=== PATIENT | female | born 1950 | race Caucasian/White ===

== ENCOUNTER 2022-01-18 14:01 | Inpatient (IN) ==
[2022-01-18] MEDS ORDERED: Naloxone 0.4 MG/ML INJ IVP PRN (19:31)
[2022-01-18] MEDS: Acetaminophen 325 MG TABLET PO PRN (19:54)
[2022-01-18] MEDS: 0.9 % Sodium Chloride 1,000 ML IVC SCH (19:55)
[2022-01-18] MEDS ORDERED: *HR* Dextrose 50 % in Water (Syg) 50 ML SYRINGE IVP PRN (21:41)
[2022-01-18] MEDS ORDERED: Ipratropium/Albuterol Neb 3 ML IH PRN (21:41)
[2022-01-18] MEDS ORDERED: Pantoprazole 40 MG VIAL IVP ONE (21:41)
[2022-01-18] MEDS ORDERED: Dextrose 4 GM Chewable Tablets PO PRN ×2 (21:41)
[2022-01-18] MEDS ORDERED: D5% in Water 1,000 ML IVC PRN (21:41)
[2022-01-19 00:54] LABS: INR 1.1; Prothrombin Time 12.8 Seconds (9.4-12.1)
[2022-01-19 00:57] LABS: Activated Partial Thrombo Time 33.4 Seconds (26.0-36.0)
[2022-01-19 01:01] LABS: Hematocrit 39.3 % (35.3-44.9); Immature Platelets 7.7 % (1.1-6.1); Mean Corpuscular HGB Conc 33.1 g/dL (31.6-35.5); Mean Corpuscular Hemoglobin 30.7 pg (28.0-33.3); Mean Corpuscular Volume 92.7 fL (83.0-100.0); Mean Platelet Volume 11.4 fL (9.4-12.4); Red Blood Count 4.24 M/mcL (3.82-4.97); Red Cell Distribution Width 12.3 % (11.5-14.5); White Blood Count 7.3 K/mcL (4.3-11.1)
[2022-01-19 01:07] LABS: BUN/Creatinine Ratio 18 (6-26); Blood Urea Nitrogen 10 mg/dL (8-23); Calcium 8.9 mg/dL (8.6-10.3); Carbon Dioxide 23 mEq/L (23-29); Chloride 103 mEq/L (98-107); Glucose 152 mg/dL (70-105); Magnesium 1.7 mg/dL (1.6-2.6); Osmolality,Calculated 284 (280-300); Phosphorous 3.2 mg/dL (2.7-4.5); Potassium 3.4 mEq/L (3.5-5.1); Sodium 136 mEq/L (136-145); eGFR For African Americans > 60 (> 60); eGFR For Non-African Americans > 60 (> 60)
[2022-01-19] MEDS: Acetaminophen 325 MG TABLET PO PRN ×2 (02:08→22:06)
[2022-01-19] MEDS: Melatonin 3 MG TABLET PO PRN (02:08)
[2022-01-19 02:31] LABS: Troponin I < 0.03 ng/mL (< 0.04)
[2022-01-19 02:35] LABS: Estimated Average Glucose 120 mg/dl; Hemoglobin A1C 5.8 %
[2022-01-19] MEDS ORDERED: *HR* LORazepam 0.5 MG TABLET PO ONE (02:46)
[2022-01-19] MEDS ORDERED: Nitroglycerin 0.4 MG TAB.SUBL SL PRN (02:52)
[2022-01-19] MEDS: 0.9 % Sodium Chloride 1,000 ML IVC SCH (06:00)
[2022-01-19] MEDS: Multivit/Ca/Min/Fe/FA 1 TAB TABLET PO SCH (08:38)
[2022-01-19] MEDS: Cholecalciferol (D-3) 1,000 UNIT (25MCG) TABLET PO SCH (08:38)
[2022-01-19] MEDS: Nicotine 7 MG PATCH.TD24 TD SCH (08:38)
[2022-01-19] MEDS ORDERED: *HR* FentaNYL (PF) 100 MCG/2 ML VIAL IVP PRN (09:09)
[2022-01-19] MEDS ORDERED: *HR* HYDROmorphone PF 0.5 MG/0.5 ML SYRINGE IVP PRN (09:09)
[2022-01-19] MEDS ORDERED: Perflutren Lipid Microsphere 1.3 ML in 0.9 % Sodium Chloride 8.7 ML IVP PRN (13:59)
[2022-01-20] MEDS: *HR* Enoxaparin 40 MG/0.4 ML SYRINGE SQ SCH (05:23)
[2022-01-20 06:31] LABS: Hematocrit 39.1 % (35.3-44.9); Hemoglobin 13.2 g/dL (11.5-15.4); Mean Corpuscular HGB Conc 33.8 g/dL (31.6-35.5); Mean Corpuscular Hemoglobin 31.1 pg (28.0-33.3); Mean Corpuscular Volume 92.2 fL (83.0-100.0); Mean Platelet Volume 11.5 fL (9.4-12.4); Platelet Count 127 K/mcL (140-400); Red Blood Count 4.24 M/mcL (3.82-4.97); Red Cell Distribution Width 12.5 % (11.5-14.5); White Blood Count 7.4 K/mcL (4.3-11.1)
[2022-01-20 06:42] LABS: BUN/Creatinine Ratio 13 (6-26); Blood Urea Nitrogen 7 mg/dL (8-23); Calcium 9.1 mg/dL (8.6-10.3); Carbon Dioxide 25 mEq/L (23-29); Chloride 102 mEq/L (98-107); Glucose 144 mg/dL (70-105); Osmolality,Calculated 285 (280-300); Potassium 3.3 mEq/L (3.5-5.1); Sodium 137 mEq/L (136-145); eGFR For African Americans > 60 (> 60); eGFR For Non-African Americans > 60 (> 60)
[2022-01-20] MEDS ORDERED: *HR* Propofol 200 MG/20 ML VIAL IVP ONE ×2 (07:42→09:31)
[2022-01-20] MEDS ORDERED: CeFAZolin Syr 2,000MG/20 ML 2,000 MG/20 ML SYRINGE IVPB ONE (07:47)
[2022-01-20] MEDS: Ringers Solution, Lactated 1,000 ML IVC SCH ×2 (07:49→22:10)
[2022-01-20] MEDS ORDERED: Lidocaine -MPF 2% 2 ML VIAL ONE ×2 (07:49→09:12)
[2022-01-20] MEDS ORDERED: *HR* Rocuronium Bromide 50 MG/5 ML VIAL ONE (07:49)
[2022-01-20] MEDS ORDERED: *HR* FentaNYL (PF) 100 MCG/2 ML VIAL ONE (07:49)
[2022-01-20] MEDS ORDERED: Lidocaine HCL 4 ML Topical Solution (Laryng-O-Jet Kit Sterile Pak) TP ONE (07:49)
[2022-01-20] MEDS ORDERED: Ondansetron 4 MG/2 ML VIAL ONE (07:49)
[2022-01-20] MEDS ORDERED: *HR* Succinylcholine 200 MG/10 ML VIAL IVP ONE (07:49)
[2022-01-20] MEDS ORDERED: Albuterol 2.5 MG/3 ML NEBULIZER IH ONE (07:57)
[2022-01-20] MEDS ORDERED: TOTAL JOINT MIXTURE (100ML) INTRAART ONE (08:00)
[2022-01-20] MEDS ORDERED: Povidone-Iodine 45 ML, Sodium Chloride IRRigation 1,000 ML IR ONE (08:00)
[2022-01-20] MEDS ORDERED: Albuterol 2.5 MG/3 ML NEBULIZER ONE (08:01)
[2022-01-20] MEDS ORDERED: Sugammadex Sodium 200 MG/2 ML VIAL IV ONE (09:07)
[2022-01-20] MEDS ORDERED: Tranexamic Acid 1,000 MG/10 ML VIAL ONE (09:13)
[2022-01-20] MEDS ORDERED: *HR* HYDROMORPHONE 2 MG/ML VIAL ONE (09:19)
[2022-01-20] MEDS: Nicotine 7 MG PATCH.TD24 TD SCH (09:21)
[2022-01-20] MEDS: Cholecalciferol (D-3) 1,000 UNIT (25MCG) TABLET PO SCH (09:22)
[2022-01-20] MEDS: Multivit/Ca/Min/Fe/FA 1 TAB TABLET PO SCH (09:22)
[2022-01-20] MEDS ORDERED: Ropivacaine/PF 0.5% 30 ML VIAL ONE (10:27)
[2022-01-20] MEDS ORDERED: Lidocaine -MPF 1% 5 ML AMPUL ONE (10:27)
[2022-01-20] MEDS ORDERED: Insulin DETEMIR 100 UNIT/ML X5UNITS SUBQ ONE (20:32)
[2022-01-20] MEDS: Melatonin 3 MG TABLET PO PRN (22:14)
[2022-01-20] MEDS: CeFAZolin 2,000 MG/120 ML BAG IVPB SCH (23:47)
[2022-01-21] MEDS: *HR* Enoxaparin 40 MG/0.4 ML SYRINGE SQ SCH (05:48)
[2022-01-21] MEDS: Acetaminophen 325 MG TABLET PO PRN (06:17)
[2022-01-21 06:50] LABS: Hematocrit 30.7 % (35.3-44.9); Hemoglobin 10.4 g/dL (11.5-15.4); Immature Platelets 10.3 % (1.1-6.1); Mean Corpuscular HGB Conc 33.9 g/dL (31.6-35.5); Mean Corpuscular Hemoglobin 31.3 pg (28.0-33.3); Mean Corpuscular Volume 92.5 fL (83.0-100.0); Mean Platelet Volume 11.6 fL (9.4-12.4); Red Blood Count 3.32 M/mcL (3.82-4.97); Red Cell Distribution Width 12.5 % (11.5-14.5); White Blood Count 8.7 K/mcL (4.3-11.1)
[2022-01-21 07:10] LABS: BUN/Creatinine Ratio 18 (6-26); Blood Urea Nitrogen 10 mg/dL (8-23); Calcium 8.7 mg/dL (8.6-10.3); Carbon Dioxide 27 mEq/L (23-29); Chloride 102 mEq/L (98-107); Glucose 109 mg/dL (70-105); Osmolality,Calculated 278 (280-300); Potassium 3.7 mEq/L (3.5-5.1); Sodium 134 mEq/L (136-145); eGFR For African Americans > 60 (> 60); eGFR For Non-African Americans > 60 (> 60)
[2022-01-21] MEDS: Nicotine 7 MG PATCH.TD24 TD SCH (08:27)
[2022-01-21] MEDS ORDERED: *HR* OxyCODONE Immed Rel 5 MG TABLET PO PRN (08:33)
[2022-01-21] MEDS: CeFAZolin 2,000 MG/120 ML BAG IVPB SCH ×3 (08:36→23:55)
[2022-01-21] MEDS: Cholecalciferol (D-3) 1,000 UNIT (25MCG) TABLET PO SCH (08:41)
[2022-01-21] MEDS: Multivit/Ca/Min/Fe/FA 1 TAB TABLET PO SCH (08:41)
[2022-01-21] MEDS: Ondansetron 4 MG/2 ML VIAL IVP PRN (10:39)
[2022-01-21] MEDS: Ketorolac 30 MG/ML VIAL IVP SCH ×2 (18:17→23:54)
[2022-01-21] MEDS: Insulin DETEMIR 100 UNIT/ML X5UNITS SUBQ SCH (21:17)
[2022-01-21] MEDS: Insulin LISPRO 300 UNITS/3 ML VIAL SUBQ SCH (21:18)
[2022-01-22] MEDS: Ketorolac 30 MG/ML VIAL IVP SCH (05:37)
[2022-01-22] MEDS: *HR* Enoxaparin 40 MG/0.4 ML SYRINGE SQ SCH (05:38)
[2022-01-22 06:17] LABS: Hematocrit 26.3 % (35.3-44.9); Mean Corpuscular HGB Conc 33.5 g/dL (31.6-35.5); Mean Corpuscular Volume 92.6 fL (83.0-100.0); Mean Platelet Volume 11.9 fL (9.4-12.4); Platelet Count 109 K/mcL (140-400); Red Blood Count 2.84 M/mcL (3.82-4.97); Red Cell Distribution Width 12.4 % (11.5-14.5); White Blood Count 5.3 K/mcL (4.3-11.1)
[2022-01-22 06:22] LABS: Hemoglobin 8.8 g/dL (11.5-15.4)
[2022-01-22] MEDS ORDERED: Ketorolac 30 MG/ML VIAL IVP PRN (07:37)
[2022-01-22] MEDS: Cholecalciferol (D-3) 1,000 UNIT (25MCG) TABLET PO SCH (08:01)
[2022-01-22] MEDS: Multivit/Ca/Min/Fe/FA 1 TAB TABLET PO SCH (08:01)
[2022-01-22] MEDS: Insulin LISPRO 300 UNITS/3 ML VIAL SUBQ SCH ×4 (08:02→20:28)
[2022-01-22] MEDS: Aspirin 325 MG TABLET PO SCH (08:02)
[2022-01-22] MEDS: CeFAZolin 2,000 MG/120 ML BAG IVPB SCH ×3 (08:02→23:20)
[2022-01-22] MEDS: Nicotine 7 MG PATCH.TD24 TD SCH (08:03)
[2022-01-22] MEDS: Ondansetron 4 MG/2 ML VIAL IVP PRN (15:58)
[2022-01-22] MEDS: Insulin DETEMIR 100 UNIT/ML X5UNITS SUBQ SCH (20:28)
[2022-01-22] MEDS: Melatonin 3 MG TABLET PO PRN (23:20)
[2022-01-23 03:51] VITALS: O2SAT 96
[2022-01-23 05:16] LABS: Hematocrit 26.6 % (35.3-44.9); Hemoglobin 8.8 g/dL (11.5-15.4); Mean Corpuscular HGB Conc 33.1 g/dL (31.6-35.5); Mean Corpuscular Hemoglobin 30.7 pg (28.0-33.3); Mean Corpuscular Volume 92.7 fL (83.0-100.0); Mean Platelet Volume 11.6 fL (9.4-12.4); Platelet Count 126 K/mcL (140-400); Red Blood Count 2.87 M/mcL (3.82-4.97); Red Cell Distribution Width 12.7 % (11.5-14.5); White Blood Count 5.2 K/mcL (4.3-11.1)
[2022-01-23 07:57] VITALS: BP 145/76; PULSE 72; TEMP 98.1
[2022-01-23] MEDS: Cholecalciferol (D-3) 1,000 UNIT (25MCG) TABLET PO SCH (08:13)
[2022-01-23] MEDS: Aspirin 325 MG TABLET PO SCH (08:13)
[2022-01-23] MEDS: Multivit/Ca/Min/Fe/FA 1 TAB TABLET PO SCH (08:13)
[2022-01-23] MEDS: Nicotine 7 MG PATCH.TD24 TD SCH (08:14)
[2022-01-23] MEDS: Insulin LISPRO 300 UNITS/3 ML VIAL SUBQ SCH (08:20)
[2022-01-23] MEDS: CeFAZolin 2,000 MG/120 ML BAG IVPB SCH (08:21)
[2022-01-23] MEDS: Ondansetron 4 MG/2 ML VIAL IVP PRN (10:58)
== END 2022-01-23 11:39 | disposition home health service (06) | DRG 481 ==
LOC: 4WAOSI → SUATTDRO 16:27
PROVIDERS: ADMIT Internal Medicine; ATTEND Internal Medicine